=== PATIENT | female | born 1990 | race Caucasian/White ===

== ENCOUNTER 2021-04-13 20:06 | Emergency (ER) | payer OTHER ==
[~2021-04-13] VITALS: Ht 167.6 cm; Wt 63.5 kg
[~2021-04-13 20:06] MED LIST: IBUPROFEN 600600 M1 PO; NOHOMEMEDICATIONS
[2021-04-14 00:36] LABS: URINE BILIRUBIN NEGATIVE (Negative); URINE BLOOD NEGATIVE (Negative); URINE CLARITY CLEAR; URINE COLOR YELLOW; URINE GLUCOSE-RANDOM NEGATIVE (Negative); URINE KETONES NEGATIVE (Negative); URINE LEUKOCYTES-REFLEX NEGATIVE (Negative); URINE NITRITE-REFLEX NEGATIVE (Negative); URINE PROTEIN NEGATIVE (Negative); URINE SPECIFIC GRAVITY 1.025 (1.005-1.030); URINE UROBILINOGEN 0.2 E.U./dl (0.2-1.0)
[2021-04-14 01:07] LABS: ABSOLUTE LYMPHOCYTES 1.6 thou/uL (0.8-5.3); ABSOLUTE MONOCYTES 0.4 thou/uL (0.0-1.2); ABSOLUTE NEUTROPHILS 1.5 thou/uL (1.6-8.1); BASOPHILS 0.9 %; EOSINOPHILS 0.7 %; HEMOGLOBIN 13.7 gm/dL (12.0-15.0); LYMPHOCYTES 44.8 %; MCH 29.5 pg (26.0-34.0); MCHC 32.7 g/dL (28.0-37.0); MCV 90.2 fL (80.0-100.0); MONOCYTES 12.5 %; MPV 8.7 fl. (7.2-11.1); NUCLEATED RBCS 0 /100WBC; PLATELET COUNT* 245 thou/uL (150-400); POLYS 41.1 %; RBC 4.66 mil/uL (4.20-5.00); RDW-CV 13.5 % (10.5-14.5); WBC 3.5 thou/uL (4.0-11.0)
[2021-04-14 01:25] LABS: CALCIUM 8.7 mg/dL (8.5-10.1); POTASSIUM 3.8 mmol/L (3.5-5.1)
[2021-04-14 01:29] LABS: ALBUMIN 3.9 g/dL (3.4-5.0); MAGNESIUM 2.3 mg/dL (1.8-2.4); TOTAL BILIRUBIN 0.2 mg/dL (<0.1-1.0); TOTAL PROTEIN 7.4 g/dL (6.4-8.2)
[2021-04-14] MEDS ORDERED: HYDROCODON-ACE1 EAC8 PO (04:36)
[2021-04-14 04:42] VITALS: BP 113/74
--- NOTE | 2021-04-14 10:46 | EKG ---
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
== END 2021-04-14 04:43 | disposition home or self-care (01) ==
LOC: M.ERS 20:06
PROVIDERS: Emergency Medicine
DX: U07.1 COVID-19 (principal)